=== PATIENT | female | born 1995 | race Caucasian/White ===

== ENCOUNTER 2018-02-13 16:18 | Emergency (ER) | payer BC ==
[~2018-02-13] VITALS: Ht 157.5 cm; Wt 74.4 kg
[2018-02-13 16:59] LABS: ANION GAP 13.8 mmol/L (8-16); BLOOD UREA NITROGEN 11 mg/dL (7-26); BUN/CREATININE RATIO 15 (6-25); CALCIUM 9.6 mg/dL (8.4-10.2); CARBON DIOXIDE 21 mmol/L (22-29); CHLORIDE 109 mmol/L (98-107); CREATININE, SERUM 0.71 mg/dL (0.57-1.11); EST GLOMERULAR FILTRATION RATE > 60 ML/MIN (60-); GLUCOSE 99 mg/dL (74-118); POTASSIUM 3.8 mmol/L (3.5-5.1); SODIUM 140 mmol/L (136-145)
--- NOTE | 2018-02-13 20:16 | Diagnostic Imaging Report ---
Examination: CT of the Head without Contrast History: headache Comparison studies: None Technique: Axial images were obtained from the skull base to the vertex. Coronal and sagittal reconstructions obtained from the axial data. Findings: Scalp/skull: No abnormalities. No fractures, blastic or lytic lesions. Extra-axial spaces: No masses. No fluid collections. Brain sulci: Appropriate for age. Ventricles: Normal in size and configuration. No hydrocephalus. Parenchyma: No abnormal densities. No masses, hemorrhage, acute or chronic cortical vascular insults. Sellar/suprasellar region: No abnormalities Craniocervical junction: Patent foramen magnum. No Chiari one malformation. IMPRESSION: No intracranial abnormalities. Preliminary findings discussed with Dr. MANN at 02/13/2018 6:[address] Boyd. The images and preliminary report were reviewed and signed by Dr. Jessie Moore, neuroradiology faculty, on 02/13/2018 at 2012 hours. Signed by: Dr. Jessie Moore M.D. on 02/13/2018 8:12 PM
[2018-02-13 21:58] VITALS: BP 138/90
== END 2018-02-13 22:08 | disposition home or self-care (01) ==
LOC: ER 16:18
DX: G43.809 Other migraine, not intractable, without status migrainosus (principal)
CPT/HCPCS: 36415; 70450; 80048; 99284

== ENCOUNTER → 2018-02-17 | Outpatient (CLI) | payer BC ==
--- NOTE | 2018-02-18 17:21 | Diagnostic Imaging Report ---
History: Vertigo Comparison studies: Head CT without contrast on 02/13/2019 Technique: Sagittal T2; axial DWI, FLAIR, MPGR, T1, Coronal FLAIR. Intravenous contrast: None Findings: Scalp: Normal in signal . No masses . Bone marrow: Normal in signal intensity. Extra-axial: No masses or fluid collections. Brain sulci: Appropriate for age. Ventricles: Normal in size . No hydrocephalus . Parenchyma: Multiple punctate scattered foci of increased T2 FLAIR signal in the deep frontal white matter and additional ill defined foci in the periatrial white matter are nonspecific but unusual given patient's age. No masses, hemorrhage, acute or chronic cortical ischemic insults. Suprasellar region: No abnormalities. Craniocervical junction: No abnormalities. Patent foramen magnum. No Chiari one malformation. Vessels: Normal flow-voids in the arteries and sinuses. IMPRESSION: 1. Punctate and ill-defined foci of increased T2 FLAIR signal in the supratentorial white matter as described are unusual for patient age. They can be seen, however, in patients with chronic migraines. Recommend sequences with contrast if there is further need for imaging and the need to exclude a demyelinating process or vasculopathy. 2. Otherwise, no abnormalities. Signed by: Dr. Demetrio Farmer M.D. on 02/18/2018 5:18 PM
== END ==
LOC: MRI 16:45
PROVIDERS: ATTEND Psychiatry & Neurology Neurology
DX: G44.52 New daily persistent headache (NDPH) (principal); G45.9 Transient cerebral ischemic attack, unspecified
CPT/HCPCS: 70551